=== PATIENT | female | born 1945 | race Caucasian/White ===

== ENCOUNTER 2018-11-11 02:15 | Emergency (ER) | payer MEDICARE, BC ==
[~2018-11-11] VITALS: Ht 157.5 cm; Wt 66.2 kg
--- NOTE | 2018-11-11 02:25 | NUR ---
PT [id number] COMPLAINING OF POSSIBLE ALLERGIC REACTION X 30 MIN. PT DOES KNOW WHAT COULD HAVE CAUSED THE REACTION. PT HAS REDNESS OF SKIN IN HEAD, ARMS AND LEGS. PT TACHYPNIC AND TACHYCARDIC. PT WAS GIVEN BREATHING TREATMENT EN ROUTE. PT AXO4. PT PUT ON THE LOG PEELER AND PULSE OX.
--- NOTE | 2018-11-11 02:35 | NUR ---
PEDRO FOUNTAIN AT BEDSIDE.
[2018-11-11] MEDS ORDERED: methylPREDNISolone SOD SUCC 125 MG/2ML VIAL ONE (02:40)
[2018-11-11] MEDS ORDERED: FAMOTIDINE/PF INJ 20 MG/2 ML VIAL IV ONE (02:41)
--- NOTE | 2018-11-11 02:55 | NUR ---
UNABLE TO OBTAIN EKG, DUE TO PT SHAKINESS. PEDRO FOUNTAIN AWARE.
--- NOTE | 2018-11-11 02:57 | NUR ---
XRAY AT BEDSIDE.
[2018-11-11] MEDS ORDERED: FAMOTIDINE/PF INJ 40 MG in IV D5W 250 ML IV ONE (03:00)
[2018-11-11] MEDS ORDERED: IV NS 0.9% 1,000 ML BAG IV ONE ×2 (03:00→04:00)
[2018-11-11] MEDS ORDERED: methylPREDNISolone SOD SUCC 125 MG/2ML VIAL IV ONE (03:00)
[2018-11-11 03:21] LABS: HEMATOCRIT 28 % (33-45); LYMPHOCYTES # (AUTO) 3.5 /CMM (0.8-4.8); LYMPHOCYTES % (AUTO) 20.8 % (20.0-44.0); MEAN CORPUSCULAR HGB CONC 32 g/dl (31.0-36.0); MEAN CORPUSCULAR VOLUME 81 fL (82-100); MONOCYTES # (AUTO) 0.5 /CMM (0.1-1.30); MONOCYTES % (AUTO) 2.7 % (2.0-12.0); NEUTROPHILS % (AUTO) 76.5 % (43.0-81.0); PLATELET COUNT (AUTO) 378 /CMM (150-450); RED BLOOD CELL COUNT(AUTO) 3.49 MIL/uL (4.0-5.2)
[2018-11-11] MEDS ORDERED: LORAZEPAM INJ 2 MG/ML VIAL ONE (03:23)
[2018-11-11 03:28] LABS: CALCIUM, SERUM 8.4 mg/dL (8.5-10.1); CARBON DIOXIDE 25 mmol/L (21-32); CHLORIDE 103 mmol/L (98-107); CREATININE 1.3 mg/dL (0.6-1.3); GLUCOSE 245 mg/dL (74-106); POTASSIUM 3.7 mmol/L (3.5-5.1); SODIUM SERUM 139 mmol/L (136-145); UREA NITROGEN, BLOOD 27 mg/dL (7-18)
[2018-11-11] MEDS ORDERED: LORAZEPAM INJ 2 MG/ML VIAL IV ONE (03:30)
[2018-11-11 03:34] LABS: ALANINE AMINOTRANSFERASE 19 U/L (12-78); ALBUMIN 3.3 g/dL (3.4-5.0); ALKALINE PHOSPHATASE 76 U/L (46-116); ASPARTATE AMINOTRANSFERASE 14 U/L (15-37); BILIRUBIN,DIRECT 0.1 mg/dL (0.0-0.2); BILIRUBIN,TOTAL 0.2 mg/dL (0.2-1.0); TOTAL PROTEIN, SERUM 6.5 g/dL (6.4-8.2)
--- NOTE | 2018-11-11 03:56 | NUR ---
PT RESTING IN BED, NAD NOTED. WILL CONTINUE TO MONITOR.
--- NOTE | 2018-11-11 04:40 | NUR ---
Pt tachycardic in 110s on the monitor. ER MD aware and okay with discharging patient.
[2018-11-11 04:44] VITALS: BP 148/82
--- NOTE | 2018-11-11 04:44 | NUR ---
Patient discharged to home in stable condition. Written and verbal after care instructions given. Patient verbalizes understanding of instruction. IV removed. Catheter intact and site benign. Pressure and 4x4 applied to site. No bleeding noted.
== END 2018-11-11 04:45 | disposition home or self-care (01) ==
LOC: ER 02:16
DX: R21 Rash and other nonspecific skin eruption (principal); T36.8X5A Adverse effect of other systemic antibiotics, initial encounter; J45.909 Unspecified asthma, uncomplicated; E03.9 Hypothyroidism, unspecified; R00.0 Tachycardia, unspecified; Z60.2 Problems related to living alone; Z88.8 Allergy status to other drugs, medicaments and biological substances; Y92.89 Other specified places as the place of occurrence of the external cause
CPT/HCPCS: 36415; 71045; 80048; 80076; 85025; 93005; 96365; 96375; 99284; J2060; J2930; J3490; J7030 ×2; J7060

== ENCOUNTER 2020-06-26 02:18 | Emergency (ER) | payer MEDICARE, BC ==
[~2020-06-26] VITALS: Ht 157.5 cm; Wt 65.8 kg
[2020-06-26] MEDS ORDERED: diphenhydrAMINE HCL 50 MG/ML VIAL ONE (02:44)
[2020-06-26] MEDS ORDERED: methylPREDNISolone SOD SUCC 125 MG/2ML VIAL ONE (02:44)
[2020-06-26] MEDS ORDERED: FAMOTIDINE/PF INJ 20 MG/2 ML VIAL IV ONE ×2 (02:44→03:00)
[2020-06-26] MEDS ORDERED: diphenhydrAMINE HCL 50 MG/ML VIAL IV ONE (03:00)
[2020-06-26] MEDS ORDERED: IV NS 0.9% 1,000 ML BAG IV ONE (03:00)
[2020-06-26] MEDS ORDERED: methylPREDNISolone SOD SUCC 125 MG/2ML VIAL IV ONE (03:00)
--- NOTE | 2020-06-26 03:59 | NUR ---
IV removed. Catheter intact and site benign. Pressure and 4x4 applied to site. No bleeding noted.
--- NOTE | 2020-06-26 03:59 | NUR ---
Patient discharged to home in stable condition. Written and verbal after care instructions given. Patient verbalizes understanding of instruction.
[2020-06-26 04:47] VITALS: BP 132/77
== END 2020-06-26 04:47 | disposition home or self-care (01) ==
LOC: ER 02:22
DX: T78.1XXA Other adverse food reactions, not elsewhere classified, initial encounter (principal); L29.9 Pruritus, unspecified; J45.909 Unspecified asthma, uncomplicated; E03.9 Hypothyroidism, unspecified; Z88.8 Allergy status to other drugs, medicaments and biological substances; Z60.2 Problems related to living alone; X58.XXXA Exposure to other specified factors, initial encounter
CPT/HCPCS: 96361; 96374; 96375; 99284; J1200; J2930; J3490; J7030

== ENCOUNTER 2021-09-06 10:35 | Inpatient (IN) | payer MEDICARE, BC ==
[~2021-09-06] VITALS: Ht 157.5 cm; Wt 67.1 kg
--- NOTE | 2021-09-06 10:43 | NUR ---
PT RICARDO FROM URGENT CARE, PER REPORT PT WAS HAVING ANXIETY AND WENT TO URGENT CARE. HX OF ASTHMA WAS GIVEN ALBUTEROL IN FILE OPERATOR. PT STILL C/O ANXIETY AND IS SATTING 80% ON RA. AND IS TACHYCARDIC. PLACED ON MONITOR. AWAITING MD SCOTT.
--- NOTE | 2021-09-06 10:49 | NUR ---
DR WRIGHT AT BEDSIDE FOR EVAL..
[2021-09-06] MEDS ORDERED: LORAZEPAM 1 MG TABLET PO ONE (11:00)
[2021-09-06] MEDS ORDERED: LORAZEPAM INJ 2 MG/ML VIAL ONE (11:03)
--- NOTE | 2021-09-06 11:14 | NUR ---
MEDICATED ORDERED. SEE EMAR.
[2021-09-06] MEDS ORDERED: IV NS 0.9% 500 ML BAG IV ONE (11:30)
[2021-09-06] MEDS ORDERED: LORAZEPAM INJ 2 MG/ML VIAL IV ONE (11:30)
[2021-09-06 12:38] LABS: BASOPHILS # (AUTO) 0.1 K/uL (0.0-0.2); BASOPHILS % (AUTO) 0.3 % (0.0-2.0); EOSINOPHILS % (AUTO) 0.2 % (0.0-6.0); HEMATOCRIT 35 % (33-45); HEMOGLOBIN 11.6 g/dL (11.5-14.8); LYMPHOCYTES # (AUTO) 2.9 K/uL (0.8-4.8); LYMPHOCYTES % (AUTO) 15.6 % (20.0-44.0); MEAN CORPUSCULAR HGB CONC 33 g/dl (31.0-36.0); MEAN CORPUSCULAR VOLUME 89 fL (82-100); MONOCYTES # (AUTO) 0.4 K/uL (0.1-1.30); MONOCYTES % (AUTO) 2.2 % (2.0-12.0); NEUTROPHILS # (AUTO) 15.5 K/uL (1.8-8.9); NEUTROPHILS % (AUTO) 81.7 % (43.0-81.0); PLATELET COUNT (AUTO) 305 K/uL (150-450); RED BLOOD CELL COUNT(AUTO) 3.96 MIL/uL (4.0-5.2); WHITE BLOOD COUNT (AUTO) 18.9 K/uL (4.3-11.0)
[2021-09-06 12:44] LABS: CALCIUM, SERUM 9.3 mg/dL (8.5-10.1); CARBON DIOXIDE 19 mmol/L (21-32); CHLORIDE 106 mmol/L (98-107); CREATININE 1.6 mg/dL (0.6-1.3); GLUCOSE 240 mg/dL (74-106); POTASSIUM 3.8 mmol/L (3.5-5.1); SODIUM SERUM 139 mmol/L (136-145); UREA NITROGEN, BLOOD 30 mg/dL (7-18)
[2021-09-06 12:56] LABS: ALANINE AMINOTRANSFERASE 23 U/L (12-78); ALBUMIN 3.2 g/dL (3.4-5.0); ALKALINE PHOSPHATASE 70 U/L (46-116); ASPARTATE AMINOTRANSFERASE 23 U/L (15-37); BILIRUBIN,DIRECT 0.1 mg/dL (0.0-0.2); BILIRUBIN,TOTAL 0.2 mg/dL (0.2-1.0); TOTAL PROTEIN, SERUM 6.4 g/dL (6.4-8.2)
[2021-09-06] MEDS ORDERED: LEVO88TA5 PO (13:20)
[2021-09-06] MEDS ORDERED: LORA-258 PO (13:20)
[2021-09-06] MEDS ORDERED: ALBU18HF2 IH (13:20)
[2021-09-06] MEDS ORDERED: AZIT250T13 MT (13:22)
[2021-09-06] MEDS ORDERED: PRED10TA PO (13:22)
--- NOTE | 2021-09-06 13:35 | NUR ---
ANGUS KAY MD.
--- NOTE | 2021-09-06 13:45 | NUR ---
CALLED NURSING SUP REGARDING PT BED
[2021-09-06 13:49] LABS: OCCULT BLOOD STOOL POSITIVE (NEGATIVE)
[2021-09-06] MEDS ORDERED: PANTOPRAZOLE 40 MG VIAL ONE (13:53)
[2021-09-06] MEDS ORDERED: IOHEXOL-350 100 ML VIAL IV ONE (13:56)
[2021-09-06] MEDS ORDERED: IV NS 0.9% 250 ML IV ONE (13:56)
[2021-09-06] MEDS ORDERED: CT SWABBABLE VALVE TRANS SET 1 EA INFUS.SET MC ONE (13:56)
[2021-09-06] MEDS ORDERED: PANTOPRAZOLE 40 MG VIAL IV ONE (14:00)
[2021-09-06] MEDS ORDERED: LOSA100T31 PO (14:40)
--- NOTE | 2021-09-06 15:16 | NUR ---
ROOM 112-1
[2021-09-06] MEDS: ALBUTEROL HALF STRENGTH 1.25 MG/3 ML VIAL.NEB NEB SCH ×2 (16:00→19:30)
[2021-09-06] MEDS: IPRATROPIUM NEB FS 0.5 MG/2.5 ML AMPUL.NEB NEB SCH ×2 (16:00→19:30)
--- NOTE | 2021-09-06 16:07 | NUR ---
pt transferred to [facility] per acls protocol.
[2021-09-06] MEDS: FAMOTIDINE/PF INJ 20 MG/2 ML VIAL IV SCH ×2 (16:33→21:42)
[2021-09-06 16:37] VITALS: BP 141/69
[2021-09-06] MEDS ORDERED: ACETAMINOPHEN 325 MG TABLET PO PRN (17:00)
[2021-09-06] MEDS ORDERED: LEVOFLOXACIN 500 MG /D5W 100ML 100 ML IV SCH (17:00)
[2021-09-06] MEDS ORDERED: ZOLPIDEM TARTRATE 5 MG TABLET PO PRN (17:00)
[2021-09-06] MEDS ORDERED: ONDANSETRON HCL/PF 4 MG/2 ML VIAL IVP PRN (17:00)
[2021-09-06] MEDS ORDERED: Z GUARD REMEDY 4 OZ OINT TP PRN (17:00)
[2021-09-06] MEDS ORDERED: IV 1/2NS 1000 ML 1,000 ML IV PRN (17:00)
[2021-09-06] MEDS ORDERED: PANTOPRAZOLE 40 MG VIAL IV SCH (17:00)
[2021-09-06] MEDS ORDERED: LORAZEPAM INJ 2 MG/ML VIAL IV PRN (17:00)
[2021-09-06] MEDS ORDERED: methylPREDNISolone SOD SUCC 125 MG/2ML VIAL IV SCH (17:00)
[2021-09-06] MEDS ORDERED: MORPHINE SULFATE INJ 2 MG/ML DISP.SYRIN IV PRN (17:00)
--- NOTE | 2021-09-06 17:00 | NUR ---
[facility] rn note received patient from er with dx gib and hypoxic respiratory failure, alert oriented on 6l nc 100% , on tele monitor st hr 116 , admitted under care rm n nonprofit director xavi Muñoz, rt ac hli intact and flushed well , bed in lowest and locked position , plan of care discussed with patient bed keep npo at this time will cont to monitor ,vs taken ,
--- NOTE | 2021-09-06 18:41 | NUR ---
tere smith note started on ivf as ordered Addendum: 09/06/21 at 1929 by ALVIN MUHAMMAD RN YOEL SMITH DIRECTOR INDEPENDENT AWARE THAT PATIENT HAS RASHES ON HANDSAND OK TO HAVE ICE CHIPS
--- NOTE | 2021-09-06 19:15 | NUR ---
RN OPENING NOTES RECEIVED PATIENT ON BED , ALERT ORIENTED X 4, RESPIRATORY EVEN AND UNLABORED NO SOB NOTED. REMAIN AFEBRILE, ON NASAL CANULA @ 3 LPM, PATIENT CURRENTLY ON NPO BUT ICE CHIPS IS OK, NOTED WITH RAC #20 INTACT, PATENT, FLUSHED WITH NS, NO INFILTRATION NOTED AT SITE. IVF RUNNING WITH 1/2 NS 1L @ 75ML/HR. ALL SAFETY MEASURE PROVIDED. BED IN LOWEST POSITION, LOCKED. CONTINUE TO MONITOR.
--- NOTE | 2021-09-06 20:08 | NUR ---
RT NOTE PT REFUSED TX AT THIS TIME. NO RESPIRATORY DISTRESS NOTED. SARAH MORGAN NOTIFIED.
--- NOTE | 2021-09-06 22:05 | NUR ---
RN NOTES, PATIENT STATED THAT SHE WANT TO GO HOME AND SHE IS FEELING WELL, INFORMED PATIENT RISKS AND BENEFITS OF LEAVING AGAINST MEDICAL ADVICE, AND SHE STATED THAT SHE ALWAYS GO THROUGH THIS AND SHE HAS HER OWN DOCTORS AND SHE HAS APPOINTMENT FOR NEXT WEEK, INFORMED HER ABOUT HER DX GI BLEED AND THAT SHE OCCULT BLOOD POSITIVE AND SHE WILL HAVE GI CONSULT IN AM, AND SHE MAY HAVE MORE TESTS, SHE IS CURRENTLY NPO FOR ANY POSSIBLE PROCEDURE, AND SHE STATED THAT SHE JUST WANT TO GO HOME, INFORM HER THAT IF SHE WANTS TO GO HOME IS LEAVING AGAINST MEDICAL ADVICE, NO DR IS DISCHARGING HER HOME, SHE VERBALIZE UNDERSTANDING, AND WANTS GO LEAVE AGAINST MEDICAL ADVICE, WILL INFORMED MD AND OIL PLANT OPERATOR.
--- NOTE | 2021-09-06 22:20 | NUR ---
RN NOTES, INFORMED INFORMATION CLERK THAT PATIENT WANTS TO LEAVE AGAINST MEDICAL ADVICE, ANEUDY KING DNP AWARE, AND STATED HE WILL NOT DISCHARGE PATIENT, IF PATIENT WANTS TO LEAVE SHE CAN LEAVE AGAINST MEDICAL ADVICE.
--- NOTE | 2021-09-06 22:35 | NUR ---
RN NOTES PATIENT GOING HOME AGAINST MEDICAL ADVICE, EXPLAINED RISK AND BENEFITS, STILL WANT TO GO HOME, PATIENT SIGNED THE FORM FOR LEAVING AGAINST MEDICAL ADVICE, AND INVENTORY LIST AND STATING EVERYTHING IS ACCOUNTED FOR. TOOK PATIENT TO THE LO VIA WHEELCHAIR. LEFT FACILITY IN STABLE CONDITION WITH .
[2021-09-07] MEDS ORDERED: LEVOTHYROXINE SODIUM 88 MCG TABLET PO SCH (07:30)
== END 2021-09-06 23:25 | disposition left against medical advice (07) | DRG 871 ==
LOC: ER 10:40 → TELE1 15:23 → TELE-TD 18:02
PROVIDERS: ADMIT Nurse Practitioner Family; ATTEND Nurse Practitioner Family
DX: A41.9 Sepsis, unspecified organism (principal); J96.01 Acute respiratory failure with hypoxia; N17.0 Acute kidney failure with tubular necrosis; K92.2 Gastrointestinal hemorrhage, unspecified; E44.1 Mild protein-calorie malnutrition; J98.11 Atelectasis; I70.0 Atherosclerosis of aorta; R73.9 Hyperglycemia, unspecified; Z20.822 Contact with and (suspected) exposure to COVID-19; F41.9 Anxiety disorder, unspecified; K44.9 Diaphragmatic hernia without obstruction or gangrene; Z85.3 Personal history of malignant neoplasm of breast; Z90.12 Acquired absence of left breast and nipple; M85.80 Other specified disorders of bone density and structure, unspecified site; Z79.51 Long term (current) use of inhaled steroids; Z79.899 Other long term (current) drug therapy; Z88.8 Allergy status to other drugs, medicaments and biological substances; E03.9 Hypothyroidism, unspecified; E88.09 Other disorders of plasma-protein metabolism, not elsewhere classified; Z92.21 Personal history of antineoplastic chemotherapy; J20.9 Acute bronchitis, unspecified; Z53.29 Procedure and treatment not carried out because of patient's decision for other reasons
CPT/HCPCS: 36415; 71045-TC; 80048-TC; 80076-TC; 82272-TC; 83880; 84484-TC; 85025-TC; 85378-TC; 87040-TC; 87081-TC; 93970-TC; C9113; C9803; G0378; J1956; J2060; J2930; J3490; J7030; J7050; Q9967

== ENCOUNTER 2024-09-11 20:36 | Emergency (ER) | payer MEDICARE, BC ==
[~2024-09-11] VITALS: Ht 157.5 cm; Wt 64.0 kg
[~2024-09-11 20:36] MED LIST: ALBU18HF2 IH; AZIT250T13 MT; LEVO88TA5 PO; LORA-258 PO; LOSA100T31 PO; PRED10TA PO
[2024-09-11] MEDS ORDERED: diphenhydrAMINE HCL 50 MG/ML VIAL ONE (20:55)
[2024-09-11] MEDS ORDERED: methylPREDNISolone SOD SUCC 125 MG/2ML VIAL ONE (20:55)
[2024-09-11] MEDS ORDERED: FAMOTIDINE/PF INJ 20 MG/2 ML VIAL IV ONE (20:56)
[2024-09-11] MEDS: methylPREDNISolone SOD SUCC 125 MG/2ML VIAL IV ONE (21:14)
[2024-09-11] MEDS: FAMOTIDINE/PF INJ 20 MG/2 ML VIAL IV ONE (21:14)
[2024-09-11] MEDS: diphenhydrAMINE HCL 50 MG/ML VIAL IV ONE (21:14)
[2024-09-11 21:16] LABS: BASOPHILS % (AUTO) 0.6 % (0.0-2.0); EOSINOPHILS # (AUTO) 0.5 K/uL (0.0-0.7); EOSINOPHILS % (AUTO) 6.5 % (0.0-6.0); HEMATOCRIT 40 % (33-45); LYMPHOCYTES # (AUTO) 4.5 K/uL (0.8-4.8); LYMPHOCYTES % (AUTO) 54.1 % (20.0-44.0); MEAN CORPUSCULAR HEMOGLOBIN 29 PG (26.0-33.0); MEAN CORPUSCULAR HGB CONC 33 g/dl (31.0-36.0); MEAN CORPUSCULAR VOLUME 89 fL (82-100); MONOCYTES # (AUTO) 0.4 K/uL (0.1-1.30); MONOCYTES % (AUTO) 5.3 % (2.0-12.0); NEUTROPHILS # (AUTO) 2.8 K/uL (1.8-8.9); NEUTROPHILS % (AUTO) 33.5 % (43.0-81.0); PLATELET COUNT (AUTO) 280 K/uL (150-450); RED BLOOD CELL COUNT(AUTO) 4.47 MIL/uL (4.0-5.2); RED CELL DISTRIBUTION WIDTH 13.5 % (11.5-15.0); WHITE BLOOD COUNT (AUTO) 8.4 K/uL (4.3-11.0)
[2024-09-11 21:17] LABS: CALCIUM, SERUM 8.9 mg/dL (8.5-10.1); CARBON DIOXIDE 28 mmol/L (21-32); CHLORIDE 104 mmol/L (98-107); CREATININE 1.3 mg/dL (0.6-1.3); GLUCOSE 191 mg/dL (74-106); POTASSIUM 3.9 mmol/L (3.5-5.1); SODIUM SERUM 140 mmol/L (136-145); UREA NITROGEN, BLOOD 19 mg/dL (7-18)
[2024-09-11 21:27] VITALS: O2SAT 98
[2024-09-11] MEDS: IPRATROPIUM NEB FS 0.5 MG/2.5 ML AMPUL.NEB NEB ONE (21:27)
[2024-09-11] MEDS: ALBUTEROL FS 2.5 MG/3 ML VIAL.NEB NEB ONE (21:27)
[2024-09-11] MEDS ORDERED: ALBUTEROL FS 2.5 MG/3 ML VIAL.NEB ONE (21:29)
[2024-09-11] MEDS ORDERED: IPRATROPIUM NEB FS 0.5 MG/2.5 ML AMPUL.NEB ONE (21:29)
[2024-09-11 22:27] VITALS: O2SAT 99
[2024-09-11 23:04] VITALS: BP 134/104; TEMP 98.3; O2SAT 99
== END 2024-09-11 23:04 | disposition left against medical advice (07) ==
LOC: ER 20:38 → UNDOADMIN 22:38 → TELE1 22:38 → ER 23:04 → UNDODISIN 09-12 13:26
DX: R00.0 Tachycardia, unspecified (principal); T44.5X5A Adverse effect of predominantly beta-adrenoreceptor agonists, initial encounter; J45.909 Unspecified asthma, uncomplicated; E03.9 Hypothyroidism, unspecified; Z85.3 Personal history of malignant neoplasm of breast; Z88.8 Allergy status to other drugs, medicaments and biological substances; Z79.51 Long term (current) use of inhaled steroids; Z79.899 Other long term (current) drug therapy; Z79.890 Hormone replacement therapy; Z86.16 Personal history of COVID-19; Y92.89 Other specified places as the place of occurrence of the external cause
CPT/HCPCS: 99285; 96374; 96375; 71045; 93005 ×2; 85025; 80048; 36415; 84484 ×2; 94644; J1200; J3490; G0378; J2919